=== PATIENT | male | born 1970 | race Caucasian/White ===

== ENCOUNTER 2020-10-29 08:51 | Emergency (ER) | payer OTHER ==
[2020-10-29] MEDS ORDERED: Aspirin 81 MG Tab.Chew PO STA (09:05)
[2020-10-29] MEDS ORDERED: Labetalol 20 MG/4 ML Syringe IVPUSH STA (09:08)
[2020-10-29] MEDS: Sodium Chloride 0.9% 10 ML Syringe FLUSH PRN ×2 (09:16→10:49)
--- NOTE | 2020-10-29 09:44 | EDM.PDOC ---
ED HPI GENERAL MEDICAL PROBLEM - General Chief Complaint: Chest Pain Stated Complaint: CHEST PAIN/HIGH BP Time Seen by Provider: 10/29/20 09:00 Source of Information: Reports: Patient History Limitations: Reports: No Limitations - History of Present Illness INITIAL COMMENTS - FREE TEXT/NARRATIVE: Patient presented to he ED because of chest pain over sternal area which started yesterday @ 0400. The pain is pleuritic type,3/10. There is no associated nausea, dyspnea. No fever/chills, cough or cold symptoms. mid chest Pain Score (Numeric/FACES): 6 - Related Data Allergies Allergy/AdvReac Type Severity Reaction Status Date / Time Penicillins Allergy Cannot Verified 10/29/20 09:22 Remember Home Meds: Home Meds amLODIPine [Norvasc] 5 mg PO BEDTIME 10/29/20 [History] lisinopriL [Lisinopril] 10 mg PO BEDTIME 10/29/20 [History] traMADol [Ultram] 100 mg PO Q8H PRN #15 tab 10/29/20 [Rx] Past Medical History Cardiovascular History: Reports: Hypertension Respiratory History: Reports: Other (See Below) Other Respiratory History: hx of pneumonia Psychiatric History: Reports: Depression - Past Surgical History GI Surgical History: Reports: Other (See Below) Other GI Surgeries/Procedures: Gastric Bypass. Musculoskeletal Surgical History: Reports: Other (See Below) Other Musculoskeletal Surgeries/Procedures:: right lower leg surgery Social & Family History - Family History Family Medical History: No Pertinent Family History ED ROS GENERAL - Review of Systems Review Of Systems: See Below Constitutional: Reports: No Symptoms HEENT: Reports: No Symptoms Respiratory: Reports: No Symptoms Cardiovascular: Reports: Chest Pain, Blood Pressure Problem Endocrine: Reports: No Symptoms GI/Abdominal: Reports: No Symptoms : Reports: No Symptoms Musculoskeletal: Reports: No Symptoms Skin: Reports: No Symptoms Neurological: Reports: No Symptoms Psychiatric: Reports: No Symptoms ED EXAM, GENERAL - Physical Exam Exam: See Below Exam Limited By: No Limitations General Appearance: Alert, No Apparent Distress Ears: Normal External Exam, Normal Canal Nose: Normal Inspection, Normal Mucosa, No Blood Throat/Mouth: Normal Inspection, Normal Lips, Normal Teeth Head: Atraumatic, Normocephalic Neck: Normal Inspection, Supple, Non-Tender, Full Range of Motion Respiratory/Chest: No Respiratory Distress, Lungs Clear, Normal Breath Sounds Cardiovascular: Normal Peripheral Pulses, Regular Rate, Rhythm, No Edema, No Gallop GI/Abdominal: Normal Bowel Sounds, Soft, Non-Tender, No Organomegaly Back Exam: Normal Inspection, Full Range of Motion Extremities: Normal Inspection, Normal Range of Motion, Non-Tender Course - Vital Signs Text/Narrative:: Labs,EKG, CXR result was discussed with patient ASA 182 mg po x1 Labetalol 20 mg IV x1 Last Recorded V/S: Last Vital Signs Temp 36.9 C 10/29/20 08:52 Pulse 88 10/29/20 08:52 Resp 19 10/29/20 08:52 BP 210/118 H 10/29/20 08:52 Pulse Ox 100 10/29/20 08:52 - Orders/Labs/Meds Orders: Active Orders 24 hr Category Date Time Status Chest 1V Frontal [CR] Stat Exams 10/29/20 09:07 Stop Req Chest w Cont [CT] Stat Exams 10/29/20 09:46 Taken Sodium Chloride 0.9% [Saline Flush] Med 10/29/20 09:08 Active 10 ml FLUSH ASDIRECTED PRN Saline Lock Insert [OM.PC] Routine Oth 10/29/20 09:08 Ordered Medication Orders Sodium Chloride (Saline Flush) 10 ml FLUSH ASDIRECTED PRN PRN Reason: Keep Vein Open Last Admin: 10/29/20 10:49 Dose: 10 ml Documented by: Admin: 10/29/20 09:16 Dose: 10 ml Documented by: KIMMY Labs: Laboratory Tests 10/29/20 10/29/20 10/29/20 Range/Units 09:05 09:05 09:05 WBC 11.1 H (3.2-10.1) x10-3/uL RBC 4.76 (3.90-5.90) x10(6)uL Hgb 12.7 L (12.9-17.7) g/dL Hct 38.5 (38.3-50.1) % MCV 80.9 (80.8-98.7) fL MCH 26.7 L (27.0-33.3) pg MCHC 33.0 (28.7-35.3) g/dL RDW 14.6 (12.4-15.0) % Plt Count 342 (117-477) x10(3)uL MPV 7.4 (6.7-11.0) fL Neut % (Auto) 77.3 H (40.3-71.8) % Lymph % (Auto) 11.6 L (15.8-45.3) % Eddy % (Auto) 8.7 (5.5-15.2) % Eos % (Auto) 1.2 (0.1-6.8) % Baso % (Auto) 1.2 (0.3-3.8) % Neut # (Auto) 8.5 H (1.7-6.9) x10-3/uL Lymph # (Auto) 1.3 (0.5-4.5) x10-3/uL Eddy # (Auto) 1.0 (0.0-1.2) x10-3/uL Eos # (Auto) 0.1 (0.0-0.6) x10-3/uL Baso # (Auto) 0.1 (0.0-0.3) x10-3/uL D-Dimer, Quantitative 0.82 H (0.0-0.59) mg/LFEU Sodium 141 (135-145) mmol/L Potassium 4.4 (3.5-5.3) mmol/L Chloride 103 (100-110) mmol/L Carbon Dioxide 29 (21-32) mmol/L BUN 10 (7-18) mg/dL Creatinine 0.9 (0.70-1.30) mg/dL Est Cr Clr Drug Dosing TNP Estimated GFR (MDRD) > 60 (>60) BUN/Creatinine Ratio 11.1 (9-20) Glucose 96 (80-116) mg/dL Calcium 8.5 L (8.6-10.2) mg/dL Total Bilirubin 0.6 (0.1-1.3) mg/dL AST 18 (5-25) IU/L ALT 22 (12-36) U/L Alkaline Phosphatase 107 (56-112) IU/L Troponin I (4.0-60.3) pg/mL Total Protein 7.4 (6.0-8.0) g/dL Albumin 4.0 (3.5-5.2) g/dL Globulin 3.4 g/dL Albumin/Globulin Ratio 1.2 10/29/20 Range/Units 09:05 WBC (3.2-10.1) x10-3/uL RBC (3.90-5.90) x10(6)uL Hgb (12.9-17.7) g/dL Hct (38.3-50.1) % MCV (80.8-98.7) fL MCH (27.0-33.3) pg MCHC (28.7-35.3) g/dL RDW (12.4-15.0) % Plt Count (117-477) x10(3)uL MPV (6.7-11.0) fL Neut % (Auto) (40.3-71.8) % Lymph % (Auto) (15.8-45.3) % Eddy % (Auto) (5.5-15.2) % Eos % (Auto) (0.1-6.8) % Baso % (Auto) (0.3-3.8) % Neut # (Auto) (1.7-6.9) x10-3/uL Lymph # (Auto) (0.5-4.5) x10-3/uL Eddy # (Auto) (0.0-1.2) x10-3/uL Eos # (Auto) (0.0-0.6) x10-3/uL Baso # (Auto) (0.0-0.3) x10-3/uL D-Dimer, Quantitative (0.0-0.59) mg/LFEU Sodium (135-145) mmol/L Potassium (3.5-5.3) mmol/L Chloride (100-110) mmol/L Carbon Dioxide (21-32) mmol/L BUN (7-18) mg/dL Creatinine (0.70-1.30) mg/dL Est Cr Clr Drug Dosing Estimated GFR (MDRD) (>60) BUN/Creatinine Ratio (9-20) Glucose (80-116) mg/dL Calcium (8.6-10.2) mg/dL Total Bilirubin (0.1-1.3) mg/dL AST (5-25) IU/L ALT (12-36) U/L Alkaline Phosphatase (56-112) IU/L Troponin I 6.5 (4.0-60.3) pg/mL Total Protein (6.0-8.0) g/dL Albumin (3.5-5.2) g/dL Globulin g/dL Albumin/Globulin Ratio Meds: Medications Generic Name Dose Route Start Last Admin Trade Name Becky PRN Reason Stop Dose Admin Sodium Chloride 10 ml 10/29/20 09:08 10/29/20 10:49 Saline Flush FLUSH 10 ml ASDIRECTED PRN Administration Keep Vein Open Discontinued Medications Generic Name Dose Route Start Last Admin Trade Name Becky PRN Reason Stop Dose Admin Aspirin 162 mg 10/29/20 09:05 10/29/20 09:16 Aspirin PO 10/29/20 09:06 162 mg NOW STA Administration Iopamidol 100 ml 10/29/20 09:59 Isovue-370 (76%) IV 10/29/20 10:00 ONETIME ONE Labetalol HCl 20 mg 10/29/20 09:08 10/29/20 09:16 Normodyne IVPUSH 10/29/20 09:09 20 mg NOW STA Administration Protocol Morphine Sulfate 2 mg 10/29/20 10:42 10/29/20 10:49 Morphine IVPUSH 10/29/20 10:43 2 mg NOW STA Administration Departure - Departure Time of Disposition: 10:15 Disposition: Home, Self-Care 01 Condition: Good Clinical Impression: Hypertensive crisis, Chest pain Prescriptions: traMADol [Ultram] 100 mg PO Q8H PRN #15 tab PRN Reason: Pain Instructions: Nonspecific Chest Pain, Adult, [id number], Hypertension, Adult, [id number] Forms: ED Department Discharge Additional Instructions: Please read discharge instructions on hypertensive crisis and chest pain Low salt,low fat diet and exercise Tramadol 100 mg with tylenol 1000 mg every 8 hours as needed for pain Follow up with your doctor this week so he can adjust the dose of your medication Sepsis Event Note (ED) - Evaluation Sepsis Screening Result: No Definite Risk - Focused Exam Vital Signs: Vital Signs Temp Pulse Resp BP Pulse Ox 10/29/20 08:52 36.9 C 88 19 210/118 H 100 - My Orders Last 24 Hours: My Active Orders 10/29/20 09:07 Chest 1V Frontal [CR] Stat 10/29/20 09:08 Sodium Chloride 0.9% [Saline Flush] 10 ml FLUSH ASDIRECTED PRN Saline Lock Insert [OM.PC] Routine 10/29/20 09:46 Chest w Cont [CT] Stat - Assessment/Plan Last 24 Hours: My Active Orders 10/29/20 09:07 Chest 1V Frontal [CR] Stat 10/29/20 09:08 Sodium Chloride 0.9% [Saline Flush] 10 ml FLUSH ASDIRECTED PRN Saline Lock Insert [OM.PC] Routine 10/29/20 09:46 Chest w Cont [CT] Stat
[2020-10-29] MEDS ORDERED: Iopamidol 755 Mg/ML 100 ML Bottle IV ONE (09:59)
[2020-10-29] MEDS ORDERED: Morphine 2 MG/ML SYRINGE IVPUSH STA (10:42)
== END 2020-10-29 11:20 | disposition home or self-care (01) ==
LOC: FB.ED 08:51
DX: I16.9 Hypertensive crisis, unspecified (principal); I10 Essential (primary) hypertension; Z88.0 Allergy status to penicillin; Z79.899 Other long term (current) drug therapy
CPT/HCPCS: 71260; 71275; 80053; 84484; 85025; 85379; 93005; 96374; 96375; 99284; 99285-25; A9270-GY; J2270; J3490; Q9967